=== PATIENT | female | born 1985 | race Caucasian/White ===

== ENCOUNTER 2021-06-10 20:50 | Emergency (ER) | payer BC, OTHER ==
[~2021-06-10] VITALS: Ht 170.2 cm; Wt 111.1 kg
== END 2021-06-11 00:01 | disposition home or self-care (01) ==
LOC: ER 21:30
DX: U07.1 COVID-19 (principal); J06.9 Acute upper respiratory infection, unspecified; Z88.1 Allergy status to other antibiotic agents
CPT/HCPCS: 99284; U0002